=== PATIENT | female | born 1990 | race Asian ===

== ENCOUNTER 2022-01-06 22:21 | Inpatient (IN) ==
[2022-01-07] MEDS ORDERED: Ondansetron 4 mg VIAL 2 MG/ML 2 ml VIAL IV PRN (01:51)
[2022-01-07] MEDS ORDERED: Vancomycin 1,000 MG in NS 0.9% 250 ml 250 ML IVPB ONE (02:00)
[2022-01-07] MEDS ORDERED: Morphine 4 MG/ML VIAL (1 ml) IV ONE (02:00)
[2022-01-07] MEDS ORDERED: Vancomycin per Pharmacy 1 EA NOTE FOLLOW UP SCH (02:00)
[2022-01-07 03:02] LABS: ABS Eosinophils 0.1 10^3/ul (0-0.6); ABS Lymphocytes 1.6 10^3/ul (1.0-4.8); ABS Monocytes 0.9 10^3/ul (0-0.8); ABS Neutrophils 6.5 10^3/ul (1.5-7.7); Eosinophil % 0.7 %; Hematocrit 34 % (35-47); Hemoglobin 11.3 g/dL (12.0-16.0); Lymphocyte % 17.5 %; Mean Corpuscular HGB Conc 34 g/dL (31-36); Mean Corpuscular Hemoglobin 30 pg (27-31); Mean Corpuscular Volume 88 fL (80-97); Mean Platelet Volume 7.4 fL (7.4-10.4); Platelet Count 342 10^3/uL (150-450); Red Blood Count 3.83 10^6 /uL (3.70-4.87); Red Cell Distribution Width 13 % (10-15); White Blood Count 9.1 10^3/uL (3.5-10.8)
[2022-01-07 03:20] LABS: Albumin 3.8 g/dL (3.2-5.2); Albumin/Globulin Ratio 1.1 (1-3); C Reactive Protein 46.82 mg/L (<8.01); Calcium 8.8 mg/dL (8.6-10.3); Globulin 3.6 g/dL (2-4); Potassium 3.9 mmol/L (3.5-5.0); Total Bilirubin 0.3 mg/dL (0.2-1.0); Total Protein 7.4 g/dL (6.4-8.9); eGFR CKD-EPI 104.1 (>60)
[2022-01-07 03:27] LABS: HCG Pregnancy 1.54 mIU/mL
[2022-01-07] MEDS ORDERED: Iohexol 300 (CONTRAST) 10 ML SDV IV ONE (09:50)
[2022-01-07] MEDS ORDERED: Vancomycin 750 MG in NS 0.9% 250 ML IVPB ONE (12:00)
[2022-01-07 14:55] VITALS: BP 112/70
[2022-01-08] MEDS ORDERED: cefTRIAXone 2 GM ADDV.VIAL 2 GM in NS 0.9% 100 ml BAG 100 ML IV SCH (02:00)
== END 2022-01-07 14:53 | disposition short-term general hospital (02) | DRG 603 ==
LOC: ED 22:21 → MERGE 01-07 01:51 → SUATTDRO 01-07 01:51 → EDHOLD 01-07 01:51
PROVIDERS: ADMIT Hospitalist; ATTEND Internal Medicine